=== PATIENT | female | born 1970 | race Caucasian/White ===

== ENCOUNTER 2024-01-23 06:53 | Day surgery (SDC) | payer OTHER, SELFPAY ==
[2023-12-19 09:27] VITALS: BMI 25.2
[2024-01-08 11:28] VITALS: BMI 25.3
--- NOTE | 2024-01-19 15:00 | PM.HPGS ---
History of Present Illness History of Present Illness Consent: Risks, benefits, and alternatives have been discussed and questions answered. Patient agrees to proceed with procedure. Chief complaint: Personal HX of colon polyps Narrative: Sita Day is a 53 year old female who's father had colon cancer. Her last colonoscopy was 7 years ago. Review of Systems Review of Systems: All systems reviewed & are unremarkable except as noted in HPI and below PMFSH Past Medical History Medical History Anxiety Depression Vitamin D deficiency Surgical History Surgical History FH: cholecystectomy Family History Family History Mother Hypertension Family history of elevated blood lipids Father Carcinoma of colon Family history of diabetes mellitus in first degree relative Social History Social History Smoking status: Never smoker Second hand tobacco smoke exposure: No Alcohol intake: current Drinks per week: 3 Alcohol use details: occasional Substance use: never Substance use type: does not use Living arrangements: with family Occupation/Education: occupation Spiritual care concerns: No Agree to blood products: Yes Meds Home Medications and Allergies Home Medications Medication Instructions Recorded Confirmed Type clomipramine 25 mg capsule See Rx Instructions .Route 12/13/23 01/08/24 Rx .COMPLEX #180 caps gabapentin 300 mg capsule 300 mg PO TID #270 caps 12/13/23 01/08/24 Rx rosuvastatin 10 mg tablet 20 mg PO DAILY 01/08/24 01/08/24 History Allergies Allergy/AdvReac Type Severity Reaction Status Date / Time No Known Allergies Allergy Mild Verified 01/23/24 07:46 Exam Resp: Auscultation: clear to auscultation bilaterally Cardio: Rate: regular rate Rhythm: regular rhythm GI: GI Palp: Yes Soft to palpation and No Tenderness to palpation present (GI) Assessment and Plan Assessment and plan (1) Family history of colon cancer: Code(s): Z80.0 - Family history of malignant neoplasm of digestive organs Status: Acute Assessment and Plan: Colonoscopy with possible biopsy or polypectomy or cautery or injection of substances.
[2024-01-23 07:49] VITALS: BP 123/86; PULSE 85; RESP 20; TEMP 36.2; O2SAT 100; BMI 25.0
[2024-01-23] MEDS: LACTATED RINGERS 1,000 ML 150 ML IV CONT (07:59)
--- NOTE | 2024-01-23 08:06 | WPDANESEPPF ---
Anes - Initial Pre Proc Eval Procedure: Operation Date: 01/23/24 09:00 Proposed Procedures p Diagnostic Colonoscopy - Melo Solis MD Date/Time: 01/23/24 08:06 Surgeon: Melo Solis MD Pre Op Diagnosis: Personal HX of colon polyps Patient Data Age: 53 Gender: F Height: 1.63 m Weight: 66.2 kg Last Vital Signs Temp 36.2 C L 01/23/24 07:49 Pulse 85 01/23/24 07:49 Resp 20 01/23/24 07:49 BP 123/86 01/23/24 07:49 Pulse Ox 100 01/23/24 07:49 O2 Del Method Room Air 01/23/24 07:49 Allergies Allergy/AdvReac Type Severity Reaction Status Date / Time No Known Allergies Allergy Mild Verified 01/23/24 07:46 Home Medications Medication Instructions Recorded Confirmed Type clomipramine 25 mg capsule See Rx Instructions .Route 12/13/23 01/23/24 Rx .COMPLEX #180 caps gabapentin 300 mg capsule 300 mg PO TID #270 caps 12/13/23 01/23/24 Rx rosuvastatin 10 mg tablet 20 mg PO DAILY 01/08/24 01/23/24 History Patient hx anesthesia problems: none Family hx anesthesia problems: none Results Review: All pre-operative results and documents have been reviewed as part of the pre-operative evaluation. [facility] Past Medical History Medical History Anxiety Depression Vitamin D deficiency Surgical History Surgical History FH: cholecystectomy Family History Family History Mother Hypertension Family history of elevated blood lipids Father Carcinoma of colon Family history of diabetes mellitus in first degree relative Social History Social History Smoking status: Never smoker Second hand tobacco smoke exposure: No Alcohol intake: current Drinks per week: 3 Alcohol use details: occasional Substance use: never Substance use type: does not use Living arrangements: with family Occupation/Education: occupation Spiritual care concerns: No Agree to blood products: Yes Anes - Eval Final PreProcedure Day of Procedure 01/23/24 08:06 Patient weight: normal Heart: regular rate and rhythm Lungs: clear to auscultation Airway: Mallampati scale class II Neurological: alert and oriented Last oral intake: >/= 8 hours ASA classification: II Emergent: no Anesthetic plan: proceed Anesthesia type and monitoring: general GIVS and standard monitoring Results Review: All pre-operative results and documents have been reviewed as part of the pre-operative evaluation. Informed Consent: The patient's anesthetic plan and its attendant risks and benefits were discussed with the patient/family/POA. Questions were solicited and answers provided to the satisfaction of the patient/family/POA.
[2024-01-23 08:37] VITALS: BP 136/82; PULSE 73; RESP 18; O2SAT 100
[2024-01-23 08:47] VITALS: BP 121/82; PULSE 71; RESP 18; O2SAT 100
[2024-01-23 08:57] VITALS: BP 119/88; PULSE 70; RESP 18; O2SAT 100
--- NOTE | 2024-01-23 09:07 | WPDANESPN ---
Anes - Prog Note Post-Op Date/Time: 01/23/24 09:07 Cardiovascular status: normal Respiratory status: normal Airway patency: baseline Mental status: baseline Post-Op hydration status: normal Vital Signs: Last Vital Signs Temp 36.2 C L 01/23/24 07:49 Pulse 71 01/23/24 08:47 Resp 18 01/23/24 08:47 BP 121/82 01/23/24 08:47 Pulse Ox 100 01/23/24 08:47 O2 Del Method Room Air 01/23/24 08:47 Pain Score (VAS): 0/10 I/O: Intake & Output 01/22/24 01/23/24 01/23/24 23:59 07:59 15:59 Intake Total 400 Balance 400 Patient Feedback: Patient satisfied with anesthetic care.
== END 2024-01-23 09:20 | disposition home or self-care (01) ==
PROVIDERS: PCP Nurse Practitioner Family; Visit Provider Internal Medicine Gastroenterology
PROC: 0DJD8ZZ Inspection of Lower Intestinal Tract, Via Natural or Artificial Opening Endoscopic (ICD-10-PCS; CPT 45378; principal; 2024-01-23 09:00)
DX: Z80.0 Family history of malignant neoplasm of digestive organs (principal); Z12.11 Encounter for screening for malignant neoplasm of colon; K57.30 Diverticulosis of large intestine without perforation or abscess without bleeding; K64.8 Other hemorrhoids
CPT/HCPCS: 45378

== ENCOUNTER 2024-08-08 11:34 | Outpatient (CLI) | payer OTHER, SELFPAY ==
[2024-08-08 16:01] LABS: Hematocrit 41.2 % (37.0-47.0); Hemoglobin 13.9 g/dL (12.0-15.0)
== END 2024-08-08 11:35 | disposition home or self-care (01) ==
PROVIDERS: PCP Nurse Practitioner Family; Visit Provider Obstetrics & Gynecology
DX: N92.6 Irregular menstruation, unspecified (principal)
CPT/HCPCS: 36415; 85014; 85018

== ENCOUNTER 2024-08-15 02:03 | Day surgery (SDC) | payer OTHER, SELFPAY ==
[2024-08-07 09:26] VITALS: BMI 26.8
--- NOTE | 2024-08-07 09:32 | PC.NURSE ---
Report to the Outpatient Waiting Room, entrance under the green pavilion located off [facility], at time _0800_ on date _[id number]_. Planned Procedure Time: _1000_.? Time changes happen often and if your time is changed the preop area will call you the afternoon before. - You and your visitor will be asked to self-screen and do not enter if you have any COVID symptoms. Please call surgeon if you need to reschedule. - A mask is optional within the hospital at this time. Patients may have clear liquids (water, carbonated beverages, clear teas, apple juice) until 3 hours prior to surgery with a maximum of 20 ounces. - No food from midnight until time of surgery and no smoking. This includes no chewing gum, candy or mints. Take only the following medications with a SIP of water on the morning of surgery: ___None____ DO NOT STOP ANY OF YOUR OTHER PRESCRIPTION MEDICATIONS PRIOR TO SURGERY EXCEPT THE FOLLOWING Medications to discontinue per physician ____None____ Please no make-up, nail portuguese, hairspray, perfume, deodorant, or body powder the day of surgery.? No jewelry (including any body piercings) or valuables the day of surgery, leave them at home.? Please take a shower or bath the night before, or the morning of, surgery with an antibacterial soap.? Wear comfortable, loose fitting clothing.? - Jewelry must be removed prior to entering the operating room.? Rings and piercings that are not removed may be cut off. - The hospital will not accept responsibility for valuables.? - Please leave all valuables, including medications, at home the day of surgery. If you are going home after surgery, a licensed starting gate driver must drive you home.? - NO public transportation without another adult if you receive anesthesia. - We recommend that an adult stay with you for 24 hours following discharge. - We also recommend that you do not drive, make important decision, drink alcoholic beverages, or take any drugs that were not prescribed by your health care provider for at least 24 hours after your discharge time. Follow any additional instructions given to you from your surgeon. Telephone instructions given to __Sita__and asked if any additional questions and then verbalized understanding. Patient advised to call surgeon office or pre surgery nurse liaison [phone] if any additional questions.
--- NOTE | 2024-08-13 07:10 | PM.IMHP ---
H&P: HPI History of Present Illness Date/Time: 08/13/24 07:10 Chief Complaint: Vaginal bleeding Narrative: This is a 53-year-old 4 para 4 admitted for hysteroscopy dilatation curettage secondary to excessive bleeding and with thickened endometrium. She is perimenopausal. Risks and benefits reviewed in great detail. She received the [employer] handout entitled hysteroscopy as well as dilatation curettage. She had all questions answered and asked to proceed Review of Systems Review of Systems: All systems reviewed & are unremarkable except as noted in HPI and below PMFSH Past Medical History Medical History Vitamin D deficiency Depression Anxiety Surgical History Surgical History FH: cholecystectomy Family History Family History Mother Hypertension Family history of elevated blood lipids Father Carcinoma of colon Family history of diabetes mellitus in first degree relative Social History Social History Smoking status: Never smoker Second hand tobacco smoke exposure: No Alcohol intake: current Drinks per week: 3 Alcohol use details: occasional Substance use: never Substance use type: does not use Living arrangements: with family Occupation/Education: occupation Spiritual care concerns: No Agree to blood products: Yes Meds Home Medications and Allergies Home Medications ?Medication ?Instructions ?Recorded ?Confirmed ?Type gabapentin 300 mg capsule 300 mg PO TID #270 caps 12/13/23 08/07/24 Rx clomipramine 25 mg capsule See Rx Instructions .Route 05/22/24 08/07/24 Rx .COMPLEX #180 caps evolocumab 140 mg/mL subcutaneous 140 mg subcut .every other week #2 06/03/24 08/07/24 Rx syringe (Repatha Syringe) mL Allergies Allergy/AdvReac Type Severity Reaction Status Date / Time No Known Allergies Allergy Mild Verified 08/07/24 09:25 Exam Const: General: cooperative, healthy appearing and comfortable Nutritional Appearance: average body habitus Orientation/consciousness: oriented to person, oriented to place and oriented to time HENMT: Head: normal to inspection Resp: Effort & Inspection: normal respiratory effort Cardio: Rate: regular rate Rhythm: regular rhythm Heart sounds: S1 normal heart sound present and S2 normal heart sound present GI: Inspection: normal to inspection : External Female Exam: normal external appearance Speculum Exam - Vagina: normal appearance of the vagina Speculum Exam - Cervix: normal appearance of the cervix Bimanual exam- vagina & uterus: soft Bimanual Exam- Adnexa, other: normal adnexae Assessment and Plan Assessment and plan (1) Excessive bleeding: Code(s): R58 - Hemorrhage, not elsewhere classified Status: Acute Plan Proceed with hysteroscopy/dilatation and curettage
--- OUTSIDE RECORDS SUMMARY | 2024-08-15 02:09 | XMS_ITS | Clinical Summary ---
Author Organization [facility] Address [address] [place] [address]. [place] [address] [place] [address] Care Team Providers Care Avionics Installer Name Role Phone Unavailable Primary Care Provider Unavailabl e Social History Tobacco Use Types Packs/Day Years Used Date Smoking Tobacco: Never Assessed Comments Unknown Sex and Gender Information Value Date Recorded Sex Assigned at Not on file Legal Sex Female 8:35 PM CDT Gender Identity Not on file Sexual Orientation Not on file Last Filed Vital Signs Vital Sign Reading Time Taken Comments Blood Pressure 106/78 09/24/2013 9:42 AM CDT Pulse 84 09/24/2013 9:42 AM CDT Temperature - - Respiratory Rate - - Oxygen Saturation - - Inhaled Oxygen Concentration - - Weight 64 kg (141 lb) 09/24/2013 9:42 AM CDT Height 165.1 cm (5' 5 ) 09/24/2013 9:42 AM CDT Body Mass Index 23.46 09/24/2013 9:42 AM CDT Plan of Treatment Health Maintenance Due Date Last Done Comments Cervical Cancer Screening Pa p Smear (Age 30 to 64) Every 3 Years 1970 Colorectal Cancer Screening Colonoscopy (10 Years) 1970 Annual Physical 1973 PHQ-2 (Physician [employer] [place]) 1982 Hepatitis C 1988 DTaP, Tdap and Td Vaccines ( 1 - Tdap) 1989 Hepatitis B Vaccines (1 of 3 - 19+ 3-dose series) 1989 Cervical Cancer Screening Pa p with HPV Testing (Age 30 to 64) Every 5 Years 2000 Cervical Cancer Screening wi th HPV 2000 Mammogram Screening 2010 Zoster Vaccines (1 of 2) 2020 COVID-19 Vaccine (3 2023-2 5 season) 2024 11/26/2020, 11/01/2020 Influenza Adult (#1) 2024 PHQ-2 (Physician [employer] [place]) 07/17/2024 Meningococcal B Vaccine Aged Out No l onger eligible based on patient's age to complete this topic Meningococcal Vaccine Aged Out No maribell see eligible based on patient's age to complete this topic Pneumococcal Vaccine: Pediatrics (0 to 5 Years) and At-Risk Patients (6 to 64 Years) Aged Out No longer eligible b ased on patient's age to complete this topic RSV Immunizations Under 20 Months Aged Out No longer eligible b ased on patient's age to complete this topic Insurance
--- OUTSIDE RECORDS SUMMARY | 2024-08-15 02:09 | XMS_ITS | Clinical Summary ---
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 Gender Identity Not on file Sexual Orientation Not on file Plan of Treatment Health Maintenance Due Date Last Done Comments Hepatitis C Virus (HCV) Screening 1970 TdaP Immunization 1970 Hepatitis B Immunization (1 of 3 - 19+ 3-dose series) 1989 Pap Smear 10/06/1991 Cervical Cancer Screening (CCS) 2000 HPV/Cotest 2000 Colonoscopy 10/06/2015 Colorectal Cancer Screening 10/06/2015 Cologuard 2020 Immunochemical Fecal Occult Blood 2020 Mammogram 2020 Pneumococcal Immunization (5 0+ years) (1 of 1 - PCV) 2020 Zoster Immunization (1 of 2) 2020 Influenza Immunization (#1) 2024 SARS-COV-2 Immunization ( - season) 2024 Respiratory Syncytial Virus (RSV) Immunization (Adult) (1 - 1-dose 75+ series) 2045 Meningococcal Immunization (ACWY) Aged Out No longer eligible based on patient's age to complete this topic Pneumococcal Immunization Combined Aged Out No longer eligible based on patient's age to complete this topic Rotavirus Immunization Aged Out No lo nger eligible based on patient's age to complete this topic
[2024-08-15 06:30] VITALS: BP 109/72; PULSE 85; RESP 16; TEMP 36.6; O2SAT 99
[2024-08-15] MEDS: ACETAMINOPHEN 500 MG TABLET 1000 MG PO (06:30)
--- NOTE | 2024-08-15 06:35 | WPDANESEPPF ---
Anes - Initial Pre Proc Eval Procedure: Operation Date: 08/15/24 07:30 Proposed Procedures p Hysteroscopy Dilation and Curettage - Keaton Costello MD Date/Time: 08/15/24 06:35 Surgeon: Keaton Costello MD Pre Op Diagnosis: irregular excessive bleeding, abnormal pap Patient Data Age: 53 Gender: F Height: 1.63 m Weight: 70.9 kg Allergies Allergy/AdvReac Type Severity Reaction Status Date / Time No Known Allergies Allergy Mild Verified 08/07/24 09:25 Home Medications ?Medication ?Instructions ?Recorded ?Confirmed ?Type gabapentin 300 mg capsule 300 mg PO TID #270 caps 12/13/23 08/07/24 Rx clomipramine 25 mg capsule See Rx Instructions .Route 05/22/24 08/07/24 Rx .COMPLEX #180 caps evolocumab 140 mg/mL subcutaneous 140 mg subcut .every other week #2 06/03/24 08/07/24 Rx syringe (Repatha Syringe) mL Patient hx anesthesia problems: none Family hx anesthesia problems: none Results Review: All pre-operative results and documents have been reviewed as part of the pre-operative evaluation. [facility] Past Medical History Medical History (Updated 08/15/24 @ 06:35 by Jovanny Varghese DO) Fibromyalgia Vitamin D deficiency Depression Anxiety Surgical History Surgical History FH: cholecystectomy Family History Family History Mother Hypertension Family history of elevated blood lipids Father Carcinoma of colon Family history of diabetes mellitus in first degree relative Social History Social History Smoking status: Never smoker Second hand tobacco smoke exposure: No Alcohol intake: current Drinks per week: 3 Alcohol use details: occasional Substance use: never Substance use type: does not use Living arrangements: with family Occupation/Education: occupation Spiritual care concerns: No Agree to blood products: Yes Anes - Eval Final PreProcedure Day of Procedure 08/15/24 06:35 Patient weight: overweight Heart: regular rate and rhythm Lungs: clear to auscultation Airway: Mallampati scale class II Neurological: alert and oriented Last oral intake: >/= 8 hours ASA classification: II Emergent: no Anesthetic plan: proceed Anesthesia type and monitoring: general GIVS and standard monitoring Results Review: All pre-operative results and documents have been reviewed as part of the pre-operative evaluation. Informed Consent: The patient's anesthetic plan and its attendant risks and benefits were discussed with the patient/family/POA. Questions were solicited and answers provided to the satisfaction of the patient/family/POA.
[2024-08-15] MEDS: LACTATED RINGERS 1,000 ML 30 ML IV CONT (06:40)
--- NOTE | 2024-08-15 06:59 | WPDHPUPDATE1 ---
History and Physical Update Update Date/Time: 08/15/24 06:59 History and Physical has been reviewed, including an updated exam of the patient. There are NO changes in the patient's condition. Risks, benefits, and alternatives have been discussed and questions answered. Patient agrees to proceed with procedure.
[2024-08-15 07:27] VITALS: BMI 26.9
[2024-08-15 07:28] LABS: BEDSIDEPREGUCG Negative (Negative)
[2024-08-15] MEDS: LIDOCAINE 1% LOCAL INJ 10 ML VIAL INFILTRATE (07:34)
--- NOTE | 2024-08-15 07:42 | W.PM.PROC2 ---
Procedure Note - Detailed Date of Procedure 08/15/24 Pre-op Diagnosis irregular excessive bleeding, abnormal pap Post-op Diagnosis Other (Irregular excessive bleeding/polyp) Procedure Performed Hysteroscopy/polypectomy/dilatation and curettage Surgeon Keaton Costello MD Anesthesia MAC and Local Indications 53-year-old female with irregular bleeding Findings Anterior fundal uterine polyp. Description of Procedure The patient was prepped draped in the normal sterile fashion placed in the dorsal lithotomy position. Under excellent sedation weighted speculum placed in posterior fornix vagina. Anterior lip of cervix grasped with a single-tooth tenaculum. 2.5cc 1% xylocaine anesthesia placed at 2, 4, 8, 10:00 a.m. of the cervix. Uterus sounded to 8cm. Serial dilatation with fragmented dilators performed followed by passage of the 5mm visualizing hysteroscope. Normal saline was used as visualizing medium. Small polyp was seen anteriorly and using the reticulating devices were removed from the uterus scraped over the entire 360? and then removed. The instruments withdrawn. Blood loss estimated at5cc. All sponge, needle, instrument counts were correct. There were no immediate complications Estimated Blood Loss 5 Drains No Packing No Pathology Yes Complications No immediate complications Condition Stable Disposition PACU
[2024-08-15 07:48] VITALS: BP 93/64; PULSE 69; RESP 10; O2SAT 95
[2024-08-15 08:15] VITALS: BP 106/78; PULSE 73; RESP 16; O2SAT 100
[2024-08-15 08:35] VITALS: BP 113/73; PULSE 71; RESP 18
== END 2024-08-15 08:39 | disposition home or self-care (01) ==
PROVIDERS: PCP Nurse Practitioner Family; Visit Provider Obstetrics & Gynecology
PROC: 0U5B8ZZ Destruction of Endometrium, Via Natural or Artificial Opening Endoscopic (ICD-10-PCS; CPT 58563; principal; 2024-08-15 07:30)
DX: R93.89 Abnormal findings on diagnostic imaging of other specified body structures (principal); N84.0 Polyp of corpus uteri; E55.9 Vitamin D deficiency, unspecified; F32.A Depression, unspecified; F41.9 Anxiety disorder, unspecified; M79.7 Fibromyalgia; Z80.0 Family history of malignant neoplasm of digestive organs
CPT/HCPCS: 58558; 88305; A9270; J1100; J2003; J2250; J2405; J2704; J3010; J7120